=== PATIENT | female | born 1965 | race Caucasian/White ===

== ENCOUNTER 2017-03-26 07:54 | Day surgery (SDC) | payer BC ==
[~2017-03-26 07:54] MED LIST: LIDOCAINE HCL 1% MPF SOL ONE; PROPOFOL 500 MG/50 ML EMU IV ONE
[2017-03-26 09:40] VITALS: TEMP 97
[2017-03-26 10:03] VITALS: BP 94/58; RESP 20
[2017-03-26 10:15] VITALS: PULSE 61; O2SAT 99
== END 2017-03-26 10:25 | disposition home or self-care (01) ==
LOC: SURG 07:54
PROVIDERS: ATTEND Internal Medicine Gastroenterology
DX: Z12.11 Encounter for screening for malignant neoplasm of colon (principal); Z80.0 Family history of malignant neoplasm of digestive organs; K64.8 Other hemorrhoids; K63.5 Polyp of colon
CPT/HCPCS: 99001; J2001; J2704